=== PATIENT | male | born 1935 | race Caucasian/White ===

== ENCOUNTER 2019-09-19 21:07 | Emergency (ER) | payer MEDICARE, OTHER ==
[~2019-09-19] VITALS: Ht 175.3 cm; Wt 82.7 kg
[2019-09-19] MEDS ORDERED: LIDOCAINE 1% INJ 20 ML 20 ML VIAL ONE (21:18)
--- NOTE | 2019-09-19 21:35 | ED Trauma-Multisystem ---
General Chief Complaint: Trauma-Non Activation Stated Complaint: FALL Activation Level: Level 2 Nursing Triage Note: pt tripped over step and fell face first into concrete causing 1 inch laceation to center of forehead and 1 inch laceration across top of nasal bridge. no loc Source of Information: Patient History of Present Illness Date Seen by Provider: Sep 19, 2019 Time Seen by Provider: 09:10 Initial Comments 83-year-old male presents to the emergency room brought by EMS after falling walking on her [employer] restaurant. Patient does not know how he fell except he may have tripped or may have had a syncopal event. Nonetheless the patient has a fairly large set of lacerations across the forehead and nose and looks as if he has a nasal deformity and CT scan of the face and head will be done. Patient does have a history of being on Plavix and he is anticoagulated. He has a history of hypertension and borderline diabetes. 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 He has had a history of a cardiac stent but no open heart surgery. He has no other pulmonary renal or GI disease. Patient has given informed consent for diagnostic and therapeutic services. Occurred: Just Prior to Arrival Severity: Moderate Pain/Injury Location: Face Method of Injury: Fall (and tripped or fell walking out of a restaurant sustaining injury to his right eyebrow right eyelid and right nasal bridge) Loss of Consciousness: Dazed Associated Symptoms (Fall): Headache Allergies and Home Medications Allergies Coded Allergies: No Known Drug Allergies (Unverified , 09/19/19) Home Medications Atenolol 100 Mg Tablet, 100 MG PO DAILY, (Reported) Clopidogrel Bisulfate 75 Mg Tablet, 75 MG PO DAILY, (Reported) Patient Home Medication List Home Medication List Reviewed: Yes Review of Systems Review of Systems Constitutional: dizziness, weakness Eyes: Pain (patient has laceration to his right eyelid right eyebrow and nasal bridge) Ears: No Symptoms Reported (but does have decreased hearing) Nose: Bloody Discharge, Pain, Other (laceration to the nasal bridge stellate formation patient also has a history of previous nasal fractures back in the patient states that he had a nasal deviation in the past.) Mouth: No Symptoms Reported Throat: No Symptoms to Report Respiratory: no symptoms reported Cardiovascular: No Symptoms Reported (no chest pain no shortness of breath patient denies ischemic heart disease symptoms although he has had a cardiac stent in the past) Gastrointestinal: no symptoms reported Genitourinary: no symptoms reported Musculoskeletal: joint pain (generalized aches and pains after sustaining a fall walking out of a restaurant he denies hip knee or ankle pain he denies shoulder or elbow or wrist or hand pain 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) Skin: lesions, other (3 cm laceration on the right forehead 2 cm laceration on the right eyebrow stellate laceration approximately 2 cm x 2 cm x 2 cm on the nasal bridge) Psychiatric/Neurological: Anxiety (patient feels embarrassed about the fall however he is oriented to time place person and purpose his insight and judgment are appropriate his psychomotor speed is appropriate and his thought process is logical and linear) Past Kgowtlz-Gsetzo-Lxzscd Hx Patient Social History Alcohol Use: Occasionally Uses Alcohol Beverage of Choice: [employer] Recreational Drug Use: No Smoking Status: Never a Smoker 2nd Hand Smoke Exposure: No Recent Hopitalizations: No Physical Abuse: No Sexual Abuse: No Mistreated: No Fear: No Immunizations Up To Date Tetanus Booster (TDap): More than 5yrs Seasonal Allergies Seasonal Allergies: Yes Past Medical History Surgeries: Yes Coronary Stent Respiratory: No Cardiac: Yes Heart Attack, Hypertension Neurological: Yes Stroke Genitourinary: No Gastrointestinal: No Musculoskeletal: No Endocrine: Yes Diabetes, Non-Insulin dep HEENT: No Cancer: No Psychosocial: No Integumentary: No Blood Disorders: No Family Medical History Reviewed Nursing Family Hx Physical Exam Vital Signs Vital Signs - First Documented 09/19/19 21:24 Temp 36.0 Pulse 53 Resp 16 B/P (MAP) 136/63 (87) Pulse Ox 100 O2 Delivery Room Air Height, Weight, BMI Height: '" Weight: lbs. oz. kg; BMI Method: General Appearance: WD/WN (for an 84-year-old male), Moderate Distress (secondary to facial trauma and lacerations) Head: Lacerations (to the right eyebrow right eyelid and nasal bridge), Tenderness (with some deformity of the nasal bridge although the patient states that he had a nasal spine deformity from previous fracture in the past) Eyes: Bilateral Eye Normal Inspection, Bilateral Eye PERRL, Bilateral Eye EOMI Ears, Nose, Throat: Decreased Hearing Neck: Full Range of Motion (for age), Normal Inspection, Non Tender Cardiovascular: Regular Rate, Rhythm, No Edema, No Gallop, No JVD, No Murmur, Normal Peripheral Pulses (for age) Respiratory: Chest Non Tender, Lungs Clear, Normal Breath Sounds, No Accessory Muscle Use, No Respiratory Distress Gastrointestinal: Normal Bowel Sounds, No Organomegaly, No Pulsatile Mass, Non Tender Back: Normal Inspection, No CVA Tenderness, No Vertebral Tenderness Extremity: Normal Capillary Refill, Normal Inspection, Normal Range of Motion (or age and history of DJD), Non Tender, No Calf Tenderness Neurologic/Psychiatric: Alert, Oriented x3, No Motor/Sensory Deficits, Normal Mood/Affect (Simmering fall), 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 II-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 Norm as Tested Skin: Warm/Dry (with the exception of the traumatized areas), Other (laceration to the right eyebrow right eyelid and nasal bridge) Konrad Coma Score Best Eye Response (Peconic): (4) Open Spontaneously Best Verbal Response (Peconic): (5) Oriented Best Motor Response (Peconic): (6) Obeys Commands Konrad Total: 15 Procedures/Interventions Wound Location: Face, Nose Wound Length (cm): 7 (patient has 3 lacerations a 3 cm laceration on the superior aspect of the eyebrow A to 70 laceration on the inferior aspect of the eyebrow and eyelid and a 2 cm stellate laceration to the nasal bridge) Wound's Depth, Shape: irregular, flap, contused tissue Wound Explored: no foreign body removed (however patient was anesthetized with 1% Xylocaine and wound was irrigated with normal saline and surgical scrub and addition to scrubbing with 4 x 4 sterile in the wound areas. Patient did have active bleeding which was controlled with suturing.) Betadine Prep?: No (the area was irrigated and scrubbed with surgical prep solution 50-50 with normal saline) Anesthesia: 1% Lidocaine Volume Anesthetic (ccs): 6 Wound Debrided: minimal Suture: Ethlion (and 140) Suture Size: 4-0 F5-2 Number of Sutures: 6 Layer Closure?: 1 Number Deep Layer Sutures: 0 Progress/Results/Core Measures Results/Orders Lab Results Laboratory Tests Test 09/19/19 21:40 Range/Units White Blood Count 5.9 4.3-11.0 10^3/uL Red Blood Count 3.63 L 4.35-5.85 10^6/uL Hemoglobin 10.5 L 13.3-17.7 G/DL Hematocrit 33 L 40-54 % Mean Corpuscular Volume 90 80-99 FL Mean Corpuscular Hemoglobin 29 25-34 PG Mean Corpuscular Hemoglobin Concent 32 32-36 G/DL Red Cell Distribution Width 16.6 H 10.0-14.5 % Platelet Count 231 130-400 10^3/uL Mean Platelet Volume 8.9 7.4-10.4 FL Neutrophils (%) (Auto) 44 42-75 % Lymphocytes (%) (Auto) 30 12-44 % Monocytes (%) (Auto) 18 H 0-12 % Eosinophils (%) (Auto) 8 0-10 % Basophils (%) (Auto) 1 0-10 % Neutrophils # (Auto) 2.6 1.8-7.8 X 10^3 Lymphocytes # (Auto) 1.7 1.0-4.0 X 10^3 Monocytes # (Auto) 1.0 0.0-1.0 X 10^3 Eosinophils # (Auto) 0.5 H 0.0-0.3 10^3/uL Basophils # (Auto) 0.1 0.0-0.1 10^3/uL Neutrophils % (Manual) 48 % Lymphocytes % (Manual) 26 % Monocytes % (Manual) 7 % Eosinophils % (Manual) 10 % Band Neutrophils 2 % Reactive Lymphocytes 7 % Poikilocytosis SLIGHT Microcytosis SLIGHT Prothrombin Time 13.6 12.2-14.7 SEC INR Comment 1.0 0.8-1.4 Activated Partial Thromboplast Time 29 24-35 SEC Sodium Level 136 135-145 MMOL/L Potassium Level 4.0 3.6-5.0 MMOL/L Chloride Level 96 L 98-107 MMOL/L Carbon Dioxide Level 20 L 21-32 MMOL/L Anion Gap 20 H 5-14 MMOL/L Blood Urea Nitrogen 18 7-18 MG/DL Creatinine 0.75 0.60-1.30 MG/DL Estimat Glomerular Filtration Rate > 60 BUN/Creatinine Ratio 24 Glucose Level 88 70-105 MG/DL Calcium Level 9.6 8.5-10.1 MG/DL Corrected Calcium 9.4 8.5-10.1 MG/DL Total Bilirubin 0.2 0.1-1.0 MG/DL Aspartate Amino Transf (AST/SGOT) 28 5-34 U/L Alanine Aminotransferase (ALT/SGPT) 17 0-55 U/L Alkaline Phosphatase 65 40-136 U/L Troponin I < 0.30 <0.30 NG/ML Total Protein 7.3 6.4-8.2 GM/DL Albumin 4.2 3.2-4.5 GM/DL My Orders Orders - CHARMAINE NIXON DO Lidocaine 1% Inj 20 Ml (Xylocaine 1% Inj (09/19/19 21:18) Cbc And Manual Diff (09/19/19 21:27) Comprehensive Metabolic Panel (09/19/19 21:27) Partial Thromboplastin Time (09/19/19 21:27) Protime With Inr (09/19/19 21:27) Ekg Tracing (09/19/19 21:27) Ct Head/Maxillofacial Wo (09/19/19 21:27) Troponin I Fs (09/19/19 22:05) Cephalexin Capsule (Keflex Capsule) (09/19/19 22:45) Medications Given in ED Current Medications Medications Dose Ordered Sig/Rojas Route Start Time Stop Time Status Last Admin Dose Admin Cephalexin HCl 500 mg ONCE ONCE PO 09/19/19 22:45 09/19/19 22:46 09/19/19 22:44 500 MG Lidocaine HCl 20 ml STK-MED ONCE .ROUTE 09/19/19 21:18 09/19/19 21:24 DC 09/19/19 21:35 20 ML Vital Signs/I&O 09/19/19 21:24 Temp 36.0 Pulse 53 Resp 16 B/P (MAP) 136/63 (87) Pulse Ox 100 O2 Delivery Room Air Progress Progress Note : Time: 22:[address] scan does reveal a displaced depressed comminuted nasal acute fracture and axial 97 with overlying soft tissue injury swelling and punctate areas of debris. I do have sutures in the wound which may have been picked up also I had scrubbed and irrigated out this wound and did not see any further foreign bodies. Patient also has a right frontal forehead periorbital and facial soft tissue swelling where these other 2 lacerations and repair are the globes appear intact without retrobulbar stranding TMJs appear normally located. There is no intracranial hemorrhage or mass effect or calvarial fracture ventricles are within limits and midline chronic and involutional changes are they're no abnormality seen except for oral peripheral cerebellar small infarcts. In light of the possibility of small punctate foreign bodies being in the wound I informed the patient and his attendant that there may be an infection. Patient agreed not to open up the wound to try to clean these out. Patient will take cephalexin 500 mg 4 times a day and first dose be given tonight. He does understand the signs and symptoms of infections and will follow-up with his physician at [facility] Dr Olguin. Postconcussion education and monitoring given to the attendant who spoke with this daughter and daughter is aware of the patient's condition. Patient did admit that he has a watchman procedure as he had atrial flutter with a 4-1 block last year. His current EKG of a right bundle branch block is similar to a previous EKG he had done after the watchman procedure. 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 In discussion with the daughter in [place] and [place] were completed going over the CT scan results postconcussion monitoring and wound monitoring and follow-up care at the [facility]. Departure Impression Primary Impression: Nasal bone fractures Additional Impressions: Fracture, nasal bone, open Laceration of face, complex RBBB (right bundle branch block) Presence of Watchman left atrial appendage closure device Post concussion syndrome Disposition: 01 HOME, SELF-CARE Condition: Stable Departure-Patient Inst. Decision time for Depature: 22:49 Patient Instructions: Laceration Repair With Stitches (DC), Nose Fracture, Postconcussion Syndrome (DC) Add. Discharge Instructions: Patient states he is going to follow up with his primary care physician at the [facility] he has an appointment next week. Patient's daughter who lives in [place] is flying back to take him to these appointments. He also will either come to the emergency room for suture removal or receive suture removal and wound evaluation at [facility]. Patient will be taking Keflex 500 mg 4 times a day in addition to his antihypertensive medicines and diabetic medicines. Wound care has been stressed to Petit and the patient and she will monitor the patient tonight for postconcussion syndrome. All discharge instructions reviewed with patient and/or family. Voiced understanding. Scripts Cephalexin (Keflex) 500 Mg Capsule 500 MG PO QID for 10 Days, #40 CAP Prov: CHARMAINE NIXON DO 09/19/19 CHARMAINE NIXON DO Sep 19, 2019 21:35
[2019-09-19 21:47] LABS: BASOPHILS % (AUTO) 1 % (0-10); EOSINOPHILS % (AUTO) 8 % (0-10); HEMATOCRIT 33 % (40-54); HEMOGLOBIN 10.5 G/DL (13.3-17.7); LYMPHOCYTES % (AUTO) 30 % (12-44); MEAN CORPUSCULAR HEMOGLOBIN 29 PG (25-34); MEAN CORPUSCULAR HGB CONC 32 G/DL (32-36); MEAN CORPUSCULAR VOLUME 90 FL (80-99); MEAN PLATELET VOLUME 8.9 FL (7.4-10.4); MONOCYTES % (AUTO) 18 % (0-12); NEUTROPHILS % (AUTO) 44 % (42-75); PLATELET COUNT 231 10^3/uL (130-400); RED CELL DISTRIBUTION WIDTH 16.6 % (10.0-14.5); WHITE BLOOD COUNT 5.9 10^3/uL (4.3-11.0)
[2019-09-19 21:48] LABS: BASOPHILS # (AUTO) 0.1 10^3/uL (0.0-0.1); EOSINOPHILS # (AUTO) 0.5 10^3/uL (0.0-0.3); LYMPHOCYTES # (AUTO) 1.7 X 10^3 (1.0-4.0); NEUTROPHILS # (AUTO) 2.6 X 10^3 (1.8-7.8)
[2019-09-19 22:00] LABS: PROTHROMBIN TIME PATIENT 13.6 SEC (12.2-14.7)
[2019-09-19 22:03] LABS: BAND NEUTROPHILS 2 %; EOSINOPHILS % (MANUAL) 10 %; LYMPHOCYTES % (MANUAL) 26 %; MICROCYTOSIS SLIGHT; MONOCYTES % (MANUAL) 7 %; NEUTROPHILS % (MANUAL) 48 %; POIKILOCYTOSIS SLIGHT; REACTIVE LYMPHOCYTES 7 %
[2019-09-19 22:14] LABS: ALANINE AMINOTRANSFERASE 17 U/L (0-55); ALBUMIN 4.2 GM/DL (3.2-4.5); ALKALINE PHOSPHATASE 65 U/L (40-136); BILIRUBIN,TOTAL 0.2 MG/DL (0.1-1.0); BUN/CREATININE RATIO 24; CALCIUM 9.6 MG/DL (8.5-10.1); CARBON DIOXIDE 20 MMOL/L (21-32); CHLORIDE 96 MMOL/L (98-107); CREATININE SERUM 0.75 MG/DL (0.60-1.30); GFR ESTIMATED > 60; GLUCOSE 88 MG/DL (70-105); SODIUM 136 MMOL/L (135-145); TOTAL PROTEIN 7.3 GM/DL (6.4-8.2)
[2019-09-19] MEDS ORDERED: ATEN100T PO (22:24)
[2019-09-19] MEDS ORDERED: METF-397 PO (22:26)
[2019-09-19] MEDS ORDERED: LOVA10TA PO (22:26)
[2019-09-19] MEDS ORDERED: ASPI-586 PO (22:26)
[2019-09-19] MEDS ORDERED: CLOP75TA69 PO (22:26)
[2019-09-19] MEDS ORDERED: CEPHALEXIN 250 MG (KEFLEX) CAP PO ONE (22:45)
[2019-09-19] MEDS ORDERED: CEPH-507 PO (22:52)
[2019-09-19 22:56] VITALS: BP 130/76
--- NOTE | 2019-09-20 07:03 | Diagnostic Imaging Report ---
PROCEDURE: CT head and maxillofacial without contrast. TECHNIQUE: Multiple contiguous axial images were obtained through the head and facial bones without the use of intravenous contrast. Auto Exposure Controls were utilized during the CT exam to meet ALARA standards for radiation dose reduction. INDICATION: Fall, head and face injury COMPARISON: None FINDINGS: CT HEAD: The ventricles and cortical sulci are prominent. There is no midline shift or mass effect. No acute intracranial hemorrhage is seen. There is no CT evidence of acute territorial ischemia. There are scattered areas of hypoattenuation in the white matter which are likely from chronic microvascular disease. The calvarium appears intact. CT FACE: There are mildly depressed comminuted fractures of the bilateral nasal bones. A small mucus retention cyst is seen in the right maxillary sinus. No fluid levels are seen in the maxillary sinuses. The orbits appear intact. The globes are intact. There is moderate soft tissue swelling over the right frontal bone and over the nose. The mandible appears normal in alignment. The pterygoid plates are intact. IMPRESSION: 1. Depressed fractures of the bilateral nasal bones. 2. No acute intracranial hemorrhage or calvarial fracture. 3. Generalized parenchymal volume loss with findings of chronic microvascular disease. Dictated by: Dictated on workstation # [id number]
== END 2019-09-19 22:56 | disposition home or self-care (01) ==
LOC: EDBD 21:10 → ER FS 21:10
DX: S02.2XXB Fracture of nasal bones, initial encounter for open fracture (principal); S01.81XA Laceration without foreign body of other part of head, initial encounter; I45.10 Unspecified right bundle-branch block; F07.81 Postconcussional syndrome; I10 Essential (primary) hypertension; E11.9 Type 2 diabetes mellitus without complications; I25.10 Atherosclerotic heart disease of native coronary artery without angina pectoris; R40.2142 Coma scale, eyes open, spontaneous, at arrival to emergency department; R40.2252 Coma scale, best verbal response, oriented, at arrival to emergency department; R40.2362 Coma scale, best motor response, obeys commands, at arrival to emergency department; Z86.73 Personal history of transient ischemic attack (TIA), and cerebral infarction without residual deficits; Z95.5 Presence of coronary angioplasty implant and graft; Z95.818 Presence of other cardiac implants and grafts; Z79.02 Long term (current) use of antithrombotics/antiplatelets; W10.9XXA Fall (on) (from) unspecified stairs and steps, initial encounter
CPT/HCPCS: 12052; 36415; 70450; 70486; 80053; 84484; 85007; 85027; 85610; 85730; 93005

== ENCOUNTER 2019-09-26 14:09 | Emergency (ER) | payer MEDICARE, OTHER ==
[~2019-09-26] VITALS: Ht 175.2 cm; Wt 82.7 kg
[~2019-09-26 14:09] MED LIST: ASPI-586 PO; ATEN100T PO; CEPH-507 PO; CLOP75TA69 PO; LOVA10TA PO; METF-397 PO
--- NOTE | 2019-09-26 14:25 | NUR ---
Spoke with Dr Delgado regarding Suture Removal policy to advice MD of any facial sutures to be viewed for approval to remove. Dr Delgado greeted apatient and ok'd RN to remove as no redmess, swelling, or drainage noted.
[2019-09-26 14:42] VITALS: BP 129/56
== END 2019-09-26 14:42 | disposition home or self-care (01) ==
LOC: EDUNIT# 14:09 → ER FS 14:11
DX: S01.21XD Laceration without foreign body of nose, subsequent encounter (principal); S01.111D Laceration without foreign body of right eyelid and periocular area, subsequent encounter; X58.XXXD Exposure to other specified factors, subsequent encounter